=== PATIENT | male | born 1970 | race Caucasian/White ===

== ENCOUNTER 2018-11-27 21:22 | Emergency (ER) | payer SELFPAY ==
[~2018-11-27] VITALS: Ht 193 cm; Wt 112.6 kg
[2018-11-27 21:32] VITALS: BP 126/90
--- NOTE | 2018-11-27 21:32 | NUR ---
TO BED # 7 AMBULATORY, REPORT GIVEN TO BLAKE HARMON
--- NOTE | 2018-11-27 21:35 | NUR ---
ASSUMED CARE OF PT AT THIS TIME. C/O SUDDEN ONSET SUB-STERNAL CP X 6 HOURS. AAOX4 WITH EVEN AND STEADY GAIT; PATIENT STATES PAIN OF 10/10; VSS; PATIENT POSITIONED FOR COMFORT; HOB ELEVATED; BEDRAILS UP X2; BED DOWN. ER MD MADE AWARE OF PT STATUS. WILL CONTINUE TO MONITOR.
--- NOTE | 2018-11-27 23:34 | NUR ---
Dr. Denis evaluating patient at bedside.
[2018-11-27] MEDS ORDERED: KETOROLAC 60 MG/2 ML VIAL IM ONE (23:40)
[2018-11-28 00:15] VITALS: BP 124/84
== END 2018-11-28 00:15 | disposition home or self-care (01) ==
LOC: MED 21:22
DX: R07.89 Other chest pain (principal); G40.909 Epilepsy, unspecified, not intractable, without status epilepticus
CPT/HCPCS: 93005; 96372; 99283; J1885

== ENCOUNTER 2018-12-06 13:32 | Emergency (ER) | payer OTHER, MEDICAID ==
[~2018-12-06] VITALS: Ht 175.3 cm; Wt 83.9 kg
[2018-12-06 13:40] VITALS: BP 123/74
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
--- NOTE | 2018-12-06 14:20 | NUR ---
PA ANN-MARIE AT BEDSIDE.
[2018-12-06] MEDS ORDERED: KETOROLAC 30 MG/ML VIAL IM ONE (14:30)
--- NOTE | 2018-12-06 15:45 | NUR ---
NO NEEDS STATED AT THIS TIME.
[2018-12-06 15:48] LABS: BASOPHILS % (AUTO) 0.4 % (0.0-2.0); EOSINOPHILS # (AUTO) 0.1 K/uL (0-0.4); EOSINOPHILS % (AUTO) 0.8 % (0.0-4.0); HEMOGLOBIN 15.2 g/dL (12.0-18.0); LYMPHOCYTES # (AUTO) 2.3 K/uL (2.0-11.5); LYMPHOCYTES % (AUTO) 29.4 % (20.5-51.1); MEAN CORPUSCULAR HEMOGLOBIN 28 pg (27-31); MEAN CORPUSCULAR HGB CONC 33 g/dL (33-37); MEAN CORPUSCULAR VOLUME 83.9 fL (80-94); MONOCYTES # (AUTO) 0.7 K/uL (0.8-1.0); MONOCYTES % (AUTO) 8.5 % (1.7-9.3); NEUTROPHILS # (AUTO) 4.7 K/uL (1.8-7.7); NEUTROPHILS % (AUTO) 60.9 % (42.2-75.2); PLATELET COUNT (AUTO) 207 K/uL (140-450); RED BLOOD CELL COUNT(AUTO) 5.48 MIL/uL (4.20-6.10); RED CELL DISTRIBUTION WIDTH 14.4 % (11.6-13.7); WHITE BLOOD COUNT (AUTO) 7.7 K/uL (4.8-10.8)
[2018-12-06 16:01] LABS: ANION GAP 9.2 (8-16); CARBON DIOXIDE 27.2 mmol/L (21-32); POTASSIUM 4.4 mmol/L (3.5-5.1)
[2018-12-06 16:02] LABS: CREATININE 0.8 mg/dL (0.7-1.3)
[2018-12-06 16:11] LABS: APPEARANCE,URINE CLEAR (CLEAR); BILIRUBIN,URINE NEGATIVE (NEGATIVE); BLOOD, URINE NEGATIVE (NEGATIVE); COLOR,URINE YELLOW (YELLOW); LEUKOCYTE ESTERASE ,URINE NEGATIVE (NEGATIVE); NITRITE, URINE NEGATIVE (NEGATIVE); PH,URINE 6.5 (5.0-9.0); UGLUCOSE NEGATIVE (NEGATIVE)
[2018-12-06 16:26] LABS: BARBITURATE, URINE NEGATIVE ng/ml (NEG <=200); BENZODIAZEPINE, URINE NEGATIVE ng/mL (NEG <=200); CANNABINOID, URINE NEGATIVE ng/mL (NEG <=50); COCAINE, URINE NEGATIVE ng/mL (NEG <=300); OPIATE, URINE NEGATIVE ng/mL (NEG <=2000); PHENCYCLIDINE SCREEN,URINE NEGATIVE ng/mL (NEG <=25)
[2018-12-06 16:27] LABS: TOTAL BILIRUBIN 0.3 mg/dL (0.0-1.0)
[2018-12-06 16:28] LABS: ALBUMIN 3.8 g/dL (3.4-5.0)
[2018-12-06 16:59] VITALS: BP 123/74
--- NOTE | 2018-12-06 17:00 | NUR ---
Patient discharged with v/s stable. Written and verbal after care instructions given and explained. Patient verbalized understanding. Ambulatory with steady gait. All questions addressed prior to discharge. Advised to follow up with PMD. [facility] CALLED. PATIENT WAITING IN THE LOBBY.
== END 2018-12-06 17:00 | disposition home or self-care (01) ==
LOC: MED 13:32
DX: F41.9 Anxiety disorder, unspecified (principal); H93.11 Tinnitus, right ear; R51 Headache; I10 Essential (primary) hypertension; G40.909 Epilepsy, unspecified, not intractable, without status epilepticus; E78.5 Hyperlipidemia, unspecified
CPT/HCPCS: 36415; 80053; 80305; 81003; 84484; 85025; 93005; 96372; 99284; J1885

== ENCOUNTER 2019-03-07 15:40 | Emergency (ER) | payer OTHER, MEDICAID ==
[~2019-03-07] VITALS: Ht 185.4 cm; Wt 108.9 kg
[2019-03-07 16:00] VITALS: BP 126/74
--- NOTE | 2019-03-07 16:00 | NUR ---
PATIENT BIB EMS. PATIENT BEING TRIAGED IN ED.
--- NOTE | 2019-03-07 17:29 | NUR ---
Patient transferred to bed 4. RN evaluating patient at bedside.
--- NOTE | 2019-03-07 17:29 | NUR ---
PATIENT MOVED TO ER BED 4.
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
[2019-03-07] MEDS ORDERED: hydrOXYzine HCL 25 MG TAB PO ONE (17:40)
[2019-03-07 18:11] VITALS: BP 118/62
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
--- NOTE | 2019-03-07 18:15 | NUR ---
PATIENT WAITING IN ER LOBBY FOR TAXI PICKUP.
== END 2019-03-07 18:11 | disposition home or self-care (01) ==
LOC: MED 15:40
DX: F41.9 Anxiety disorder, unspecified (principal); I10 Essential (primary) hypertension
CPT/HCPCS: 99283; 99284